=== PATIENT | male | born 1980 | race Asian ===

== ENCOUNTER 2018-09-22 09:07 | Day surgery (SDC) | payer OTHER ==
[~2018-09-22] VITALS: Ht 167.6 cm; Wt 65.8 kg
[2018-09-22 09:48] VITALS: BP 116/84
[2018-09-22 14:33] VITALS: BP 124/67
== END 2018-09-22 12:30 | disposition home or self-care (01) ==
LOC: DS 09:07 → OR 10:30 → GI 10:30 → EDSEX 10:30 → DS 12:30
PROVIDERS: Internal Medicine Gastroenterology
PROC: 0DB68ZX Excision of Stomach, Via Natural or Artificial Opening Endoscopic, Diagnostic (ICD-10-PCS; principal; 2018-09-22 10:30)
DX: D50.9 Iron deficiency anemia, unspecified (principal); K29.70 Gastritis, unspecified, without bleeding; B96.81 Helicobacter pylori [H. pylori] as the cause of diseases classified elsewhere
CPT/HCPCS: 43235; J1200; J1610; J2250; J2310; J3010; J3490